=== PATIENT | male | born 1950 | race Hispanic/Latino ===

== ENCOUNTER 2022-07-14 09:17 | Emergency (ER) | payer OTHER ==
[2022-07-14 09:50] LABS: Hemoglobin 11.9 g/dL (13.5-17.5); Mean Corpuscular HGB CONC 35.7 g/dL (32.0-36.0); Mean Corpuscular Hemoglobin 27.2 pg (27.0-33.0); Mean Corpuscular Volume 76.2 fl (81.2-95.1); Mean Platelet Volume 9.4 fl (7.4-10.4); Platelet Count 317 10x3/uL (150-450); RBC Distribution Width 12.7 % (11.5-14.5); Red Blood Cell (RBC) Count 4.37 10x6/uL (4.32-5.72); White Blood Cell (WBC) Count 11.7 10x3/uL (3.5-10.5)
[2022-07-14 09:52] LABS: MDiff Complete? YES
[2022-07-14 10:12] LABS: ALT (SGPT) 19 U/L (8-55); AST (SGOT) 26 U/L (5-34); Albumin 4.7 g/dL (3.4-4.8); Alkaline Phosphatase 104 U/L (40-110); Anion Gap 14 mmol/L (10-20); BUN (Urea Nitrogen) 13 mg/dL (8.4-25.7); Bilirubin, Total 0.4 mg/dL (0.2-1.2); Calc. Creatinine Clearance 0 mL/min (70-130); Calcium 9.7 mg/dL (7.8-10.44); Carbon Dioxide 22 mmol/L (23-31); Chloride 93 mmol/L (98-107); Estimated GFR 80; Globulin 3.7 g/dL (2.4-3.5); Glucose 117 mg/dL (83-110); Lipase 45 U/L (8-78); Potassium 4.1 mmol/L (3.5-5.1); Protein, Total 8.4 g/dL (5.8-8.1); Sodium 125 mmol/L (136-145)
[2022-07-14 10:15] LABS: Band 1 % (5-11); Eosinophils 3 % (0-10); Lymphocytes 27 % (21-51); Monocytes 14 % (0-10); Neutrophil 55 % (42-75)
[2022-07-14 10:16] LABS: Platelet Morphology Comment Appears Adequate
[2022-07-14 10:17] LABS: RBC Morphology Normal
[2022-07-14 10:20] LABS: Bilirubin Neg (Negative); Blood, Urine Negative (Negative); Clarity Clear (Clear); Glucose, Urine (Dipstick) Normal (Negative); Ketone, Urine Negative (Negative); Leukocyte Negative (Negative); Nitrite Negative (Negative); Protein, Urine (Dipstick) Negative (Neg-Trace); Urobilinogen Normal mg/dL (Less than 2)
[2022-07-14 10:28] LABS: Specific Gravity, Urine 1.005 (1.005-1.030)
[2022-07-14 10:46] LABS: SARS-CoV-2 NAA Rapid Test Not Detected (NotDetected)
== END 2022-07-14 17:28 | disposition short-term general hospital (02) ==
LOC: CSHERS 09:17 → EEVIPCON 09:17 → CSHERS 17:28
DX: R00.1 Bradycardia, unspecified (principal); R07.9 Chest pain, unspecified; R30.0 Dysuria; E87.1 Hypo-osmolality and hyponatremia; I10 Essential (primary) hypertension; E78.5 Hyperlipidemia, unspecified; Z20.822 Contact with and (suspected) exposure to COVID-19
CPT/HCPCS: 71045; 80053; 81003; 83605; 83690; 83880; 84484; 85025; 93005; 94760